=== PATIENT | male | born 1950 | race Caucasian/White ===

== ENCOUNTER 2021-06-21 08:40 | Emergency (ER) | payer MEDICARE ==
[2021-06-21 09:17] LABS: BASOPHIL 0.4 % (0-2); EOSINOPHIL 2.8 % (0-7); HGB 14.4 g/dl (13.2-18.0); LYMPHOCYTE 14.5 % (15-48); MCH 29.1 pg (25.0-31.0); MCHC 33.5 g/dL (32.0-36.0); MONOCYTE 10.3 % (0-12); MPV 9.7 fL (6.0-9.5); NEUTROPHIL 71.5 % (41-80); NRBC 0; PLT 144 K/uL (150-400); RBC 4.94 M/uL (4.70-6.00); RDW 13.3 % (11.5-14.0); WBC 5.6 K/uL (4.0-10.5)
[2021-06-21 09:36] LABS: ALBUMIN 3.1 g/dL (3.4-5.0); BILIRUBIN - TOTAL 0.5 mg/dL (0.2-1.0); BUN/CREAT RATIO (CALC) 15.9 RATIO; CREATININE 0.88 mg/dL (0.67-1.17); GLOBULIN (CALCULATION) 3.6 g/dL; POTASSIUM 4.2 mmol/L (3.5-5.1); TOTAL PROTEIN 6.7 g/dL (6.4-8.2)
[2021-06-21] MEDS ORDERED: DEXAMETHASONE 2M2 MG PO (10:16)
[2021-06-21 10:57] LABS: LACTIC ACID 1.3 mmol/L (0.4-1.9)
== END 2021-06-21 14:41 | disposition home or self-care (01) ==
LOC: FER 08:40
PROVIDERS: Internal Medicine
DX: U07.1 COVID-19 (principal); E87.1 Hypo-osmolality and hyponatremia; Z23 Encounter for immunization
CPT/HCPCS: 36415; 36600; 71045; 80053; 82803; 83605; 84484; 85025; 93005; J1100; M0243; Q0244; U0002

== ENCOUNTER 2021-07-17 17:16 | Emergency (ER) | payer MEDICARE ==
[~2021-07-17 17:16] MED LIST: DEXAMETHASONE 2M2 MG PO
[2021-07-17 18:52] LABS: BASOPHIL 0.5 % (0-2); EOSINOPHIL 2.9 % (0-7); HCT 43.3 % (42.0-52.0); HGB 14.1 g/dl (13.2-18.0); LYMPHOCYTE 23.6 % (15-48); MCH 29.3 pg (25.0-31.0); MCHC 32.6 g/dL (32.0-36.0); MONOCYTE 8.4 % (0-12); NEUTROPHIL 64.1 % (41-80); NRBC 0; PLT 265 K/uL (150-400); RBC 4.81 M/uL (4.70-6.00); RDW 13.8 % (11.5-14.0); WBC 7.5 K/uL (4.0-10.5)
[2021-07-17 19:05] LABS: ALBUMIN 3.1 g/dL (3.4-5.0); BILIRUBIN - TOTAL 0.4 mg/dL (0.2-1.0); BUN/CREAT RATIO (CALC) 11.5 RATIO; CREATININE 0.87 mg/dL (0.67-1.17); GLOBULIN (CALCULATION) 3.3 g/dL; POTASSIUM 3.7 mmol/L (3.5-5.1); TOTAL PROTEIN 6.4 g/dL (6.4-8.2)
[2021-07-17 19:14] LABS: PRO-BNP 673 pg/mL (<125)
== END 2021-07-17 20:53 | disposition home or self-care (01) ==
LOC: FER 17:16
PROVIDERS: Physician Assistant
DX: I44.0 Atrioventricular block, first degree (principal); R79.89 Other specified abnormal findings of blood chemistry; Z87.891 Personal history of nicotine dependence; Z91.041 Radiographic dye allergy status; Z86.16 Personal history of COVID-19
CPT/HCPCS: 36415; 71045; 80053; 83880; 84443; 84484; 85025; 93005